=== PATIENT | female | born 1975 | race Caucasian/White ===

== ENCOUNTER → 2016-09-13 | Outpatient (CLI) | payer BC ==
--- NOTE | 2016-09-16 13:17 | Diagnostic Imaging Report ---
EXAMINATION: Bilateral screening mammogram 2D views with tomosynthesis. The current study was also evaluated with a Computer Aided Detection (CAD) system. INDICATION: Screening. PERSONAL HISTORY: No current complaints stated on the questionnaire. COMPARISON: None. This is a baseline study. FINDINGS: There are scattered fibroglandular densities seen bilaterally. An intramammary lymph node in the axillary tail of the right breast is seen. No mass, architectural distortion, or suspicious cluster of calcifications. IMPRESSION: No mammographic evidence of malignancy. Annual screening mammograms are recommended. ACR BI-RADS Category 2: Benign findings. Result letter will be mailed to the patient. Note: At least 10% of breast cancer is not imaged by mammography. Dictated by: Dictated on workstation # [id number]
== END ==
LOC: RAD 12:02
PROVIDERS: ATTEND Family Medicine
DX: Z12.31 Encounter for screening mammogram for malignant neoplasm of breast (principal)
CPT/HCPCS: 77067

== ENCOUNTER → 2017-02-06 | Outpatient (CLI) | payer BC | LOC: CARD 09:19 | PROVIDERS: ATTEND Nurse Practitioner Family | DX: R00.2 Palpitations (principal) | CPT/HCPCS: 93005 ==

== ENCOUNTER → 2018-03-11 | Outpatient (CLI) | payer BC ==
--- NOTE | 2018-03-11 15:17 | Diagnostic Imaging Report ---
INDICATION: Cough and chest tenderness. PA and lateral views of the chest are obtained. COMPARISON: No previous study is available for comparison at this time. FINDINGS: Heart size and pulmonary vasculature are within normal limits, and the lungs are clear, bilaterally. IMPRESSION: Unremarkable chest. Dictated by: Dictated on workstation # [id number]
== END ==
LOC: RAD 14:39
PROVIDERS: ATTEND Family Medicine
DX: R05 Cough (principal); R07.89 Other chest pain
CPT/HCPCS: 71046

== ENCOUNTER → 2018-09-10 | Outpatient (CLI) | payer BC ==
--- NOTE | 2018-09-10 09:55 | Diagnostic Imaging Report ---
PROCEDURE: US Gallbladder. TECHNIQUE: Multiple real-time grayscale images were obtained over the right upper quadrant in various projections. INDICATION: Right upper quadrant pain. FINDINGS: The liver is normal in size without focal lesions. No biliary duct dilatation, common bile duct measures less than 5 mm. There is no cholelithiasis, gallbladder wall thickening or pericholecystic fluid. There is some gallbladder sludge. Visualized portions of the pancreas are unremarkable. Right kidney is normal. No ascites. IMPRESSION: Gallbladder sludge otherwise unremarkable right upper quadrant ultrasound. Dictated by: Dictated on workstation # [id number]
== END ==
LOC: RAD 09-08 14:25
PROVIDERS: ATTEND Family Medicine
DX: K82.8 Other specified diseases of gallbladder (principal); R14.0 Abdominal distension (gaseous)
CPT/HCPCS: 76705

== ENCOUNTER 2018-10-01 05:50 | Outpatient (CLI) | payer BC ==
[~2018-10-01] VITALS: Ht 185.4 cm; Wt 120.2 kg
[2018-10-01] MEDS ORDERED: PANT40TA3 PO (16:39)
== END 2018-10-01 16:46 | disposition home or self-care (01) ==
LOC: PREOP 05:50
PROVIDERS: ATTEND Surgery
DX: Z01.818 Encounter for other preprocedural examination (principal)

== ENCOUNTER 2018-10-08 06:59 | Day surgery (SDC) | payer BC ==
[2018-10-08] VITALS (12 sets, daily range): BP systolic 12–120; BP diastolic 58–72
[~2018-10-08] VITALS: Ht 185.4 cm; Wt 122.1 kg
[~2018-10-08 06:59] MED LIST: PANT40TA3 PO
[2018-10-08] MEDS ORDERED: ceFAZolin 2 GM/50 ML NS 50 ML IV ONE (07:15)
[2018-10-08] MEDS ORDERED: proPOfol 200 MG/20 ML (DIPRIVAN) VIAL IV ONE (07:27)
[2018-10-08] MEDS ORDERED: MIDAZOLAM 2 MG/2 ML (VERSED) VIAL ONE (07:27)
[2018-10-08] MEDS ORDERED: DEXAMETHASONE 10 MG/ML (DECADRON) 1 ML VIAL ONE (07:27)
[2018-10-08] MEDS ORDERED: LIDOCAINE PF 2% 5 ML (XYLOCAINE) VIAL ONE (07:27)
[2018-10-08] MEDS ORDERED: ONDANSETRON 4 MG/2 ML (SDV) Z0FRAN ONE ×2 (07:27→11:36)
[2018-10-08] MEDS ORDERED: SEVOFLURANE (ULTANE) 15 ML INHAL SOLN ONE ×4 (07:27→10:11)
[2018-10-08] MEDS ORDERED: fentaNYL INJECTION 100 MCG/2 ML AMP ONE ×2 (07:27→10:05)
[2018-10-08] MEDS ORDERED: BUP/EPI 0.5% 1:200,000 (MARCAINE) 10ML VIAL IJ ONE (07:29)
[2018-10-08] MEDS: LACTATED RINGERS 1,000 ML IV PRN ×2 (08:05→10:24)
[2018-10-08] MEDS ORDERED: FAMOTIDINE 20MG/2ML IV (PEPCID) ONE (08:25)
--- NOTE | 2018-10-08 08:27 | Progress Note-Pre Operative ---
Pre-Operative Progress Note H&P Reviewed The H&P was reviewed, patient examined and no changes noted. Date Seen by Provider: Oct 08, 2018 Time Seen by Provider: 08:25 Date H&P Reviewed: Oct 08, 2018 Time H&P Reviewed: 08:20 Pre-Operative Diagnosis: Chronic calculous cholecystitis YANDY RAMAN APRN Oct 08, 2018 08:27
[2018-10-08] MEDS ORDERED: HYDR-3816 PO (08:29)
[2018-10-08] MEDS ORDERED: ONDANSETRON 4 MG/2 ML (SDV) Z0FRAN IVP PRN ×2 (08:30→10:45)
[2018-10-08] MEDS ORDERED: ACETAMINOPHEN 325 MG TABLET PO PRN (08:30)
[2018-10-08] MEDS ORDERED: HYDROcodone/APAP 5 MG/325 MG (LORTAB) TAB PO ONE (08:30)
[2018-10-08] MEDS ORDERED: morphine INJ 10 MG/ML 1ML (SYR OR VIAL) IVP PRN (08:30)
--- NOTE | 2018-10-08 08:30 | Discharge Inst-Surgical ---
D/C Lap Instructions-KIDO Reconcile Patient Problems Problems Reviewed?: Yes New, Converted, or Re-Newed RX: RX on Chart Follow Up Appt in 2 weeks Activity as tolerated No driving for 24 hours No driving while on pain medications Incentive Spirometry use every 2 hours while awake Regular Diet Symptoms to Report: Fever over 101 degree F, Nausea/Vomiting Infection Signs and Symptoms to report: Increased redness, Foul odor of wound, Increased drainage Bathing instructions: May shower Operative Area Clean/Dry; Keep incision clean/dry If any problems/questions: Contact your physician or go to Emergency Room YANDY RAMAN APRN Oct 08, 2018 08:30
[2018-10-08] MEDS ORDERED: FAMOTIDINE 20MG/2ML IV (PEPCID) IV ONE (08:45)
[2018-10-08 09:00] LABS: BASOPHILS % (AUTO) 0 % (0-10); EOSINOPHILS # (AUTO) 0.1 10^3/uL (0.0-0.3); EOSINOPHILS % (AUTO) 1 % (0-10); HEMATOCRIT 41 % (35-52); HEMOGLOBIN 13.3 G/DL (11.5-16.0); LYMPHOCYTES # (AUTO) 1.9 X 10^3 (1.0-4.0); LYMPHOCYTES % (AUTO) 30 % (12-44); MEAN CORPUSCULAR HEMOGLOBIN 29 PG (25-34); MEAN CORPUSCULAR HGB CONC 33 G/DL (32-36); MEAN CORPUSCULAR VOLUME 87 FL (80-99); MEAN PLATELET VOLUME 11.5 FL (7.4-10.4); MONOCYTES # (AUTO) 0.6 X 10^3 (0.0-1.0); MONOCYTES % (AUTO) 9 % (0-12); NEUTROPHILS # (AUTO) 3.7 X 10^3 (1.8-7.8); NEUTROPHILS % (AUTO) 59 % (42-75); PLATELET COUNT 191 10^3/uL (130-400); RED CELL DISTRIBUTION WIDTH 13.2 % (10.0-14.5); WHITE BLOOD COUNT 6.3 10^3/uL (4.3-11.0)
[2018-10-08] MEDS ORDERED: ROCURONIUM 10 MG/ML 5 ML SYRINGE IV ONE (10:12)
[2018-10-08] MEDS ORDERED: GLYCOPYRROLATE 0.2 MG/ML (ROBINUL) 2 ML VIAL ONE (10:16)
[2018-10-08] MEDS ORDERED: NEOSTIGMINE 3 MG/3 ML VIAL ONE (10:16)
[2018-10-08] MEDS ORDERED: KETOROLAC 30 MG/ML VIAL ONE (10:24)
--- NOTE | 2018-10-08 10:40 | Progress Note-Post Operative ---
Post-Operative Progess Note Surgeon (s)/Shop Laborer (s) Surgeon JOHNSON RICHARDS MD Shop Laborer: chago baum EARTH MOVER Pre-Operative Diagnosis Chronic calculous cholecystitis Post-Operative Diagnosis same Procedure & Operative Findings Date of Procedure 10/08/18 Procedure Performed/Findings laparoscopic cholecystectomy Anesthesia Type get Estimated Blood Loss Estimated blood loss (mL): minimal Specimens/Packing Specimens Removed gallbladder JOHNSON RICHARDS MD Oct 08, 2018 10:40
[2018-10-08] MEDS ORDERED: HYDROmorphone 2 MG/ML VIAL (DILAUDID) IV ONE (10:45)
[2018-10-08] MEDS ORDERED: HYDROmorphone 2 MG/ML VIAL (DILAUDID) ONE (10:54)
--- NOTE | 2018-10-08 11:03 | Anesthesia-General Post-Op ---
General Patient Condition Mental Status/LOC: Same as Preop Cardiovascular: Satisfactory Nausea/Vomiting: Absent Respiratory: Satisfactory Pain: Controlled Complications: Absent Post Op Complications Complications None Follow Up Care/Instructions Patient Instructions None needed. Anesthesia/Patient Condition Patient Condition Patient is doing well, no complaints, stable vital signs, no apparent adverse anesthesia problems. No complications reported per nursing. STEFAN REDDY CRNA Oct 08, 2018 11:03
--- NOTE | 2018-10-08 12:28 | NUR ---
PER YANDY RAMAN APRN, THIS NURSE CALLED IN TO [facility] : ZOFRAN (ORAL DISSOLVE) 4MG PO Q6HRS PRN NAUSEA #30 WITH 2 REFILLS.
[2018-10-08] MEDS ORDERED: diphenhydrAMINE 50 MG/ML INJ (BENADRYL) ONE (12:52)
[2018-10-08] MEDS ORDERED: diphenhydrAMINE 50 MG/ML INJ (BENADRYL) IVP ONE (13:00)
--- NOTE | 2018-10-08 14:45 | OPERATIVE REPORT ---
DATE OF SERVICE: 10/08/2018 ATTENDING PRIMARY CARE PHYSICIAN: Philly Dalton DO PREOPERATIVE DIAGNOSIS: Chronic calculous cholecystitis. POSTOPERATIVE DIAGNOSIS: Chronic calculous cholecystitis. PROCEDURE: Laparoscopic cholecystectomy. SURGEON: Johnson Richards MD MILL BEAM FITTER: Alin Leigh APRN ANESTHESIA: General endotracheal. ESTIMATED BLOOD LOSS: Minimal. FINDINGS: Mildly dilated gallbladder, no gallbladder wall thickening, thick sludge as well as small stones. DISPOSITION: The patient tolerated the procedure well. INDICATIONS: The patient is a 43-year-old female with abdominal bloating, increased belching as well as an episode of nausea and vomiting. Her symptoms initially started 6 years ago; however, had become more prevalent as well as more severe. She does state that with the abdominal bloating, this is followed by radiation of pain towards the back. She had an ultrasound performed, which did show sludge within the gallbladder. She states she does not have any classic symptoms of reflux; however, with this abdominal bloating after meals, she will have some epigastric burning. DESCRIPTION OF PROCEDURE: The patient was brought to the operating room, laid supine on the table. After adequate IV pain and sedative medications and general endotracheal intubation, the abdomen was prepped and draped in standard surgical fashion. A 0.5% Marcaine with epinephrine was then used to anesthetize the overlying skin in the left upper abdominal quadrant and a small transverse skin incision was made using a 15 blade. An 0 silk suture was applied to the medial aspect incision for retraction and a Veress needle was inserted with a low opening pressure of 0 mmHg and the abdomen was then insufflated to 15 mmHg pressure. The Veress needle was removed and a 5 mm Xcel trocar was placed followed by a 5 mm 45-degree angle laparoscope visualizing the peritoneal cavity. A 4-quadrant abdominal exploration was performed. Mild gallbladder wall distention identified. There was no gallbladder wall inflammation. The liver, stomach, omentum appeared normal. Under direct visualization, we then proceeded to place a supraumbilical 10 mm port after the skin and peritoneal lining were anesthetized using 0.5% Marcaine with epinephrine and a transverse skin incision was made using a 15 blade. In a similar manner, a right upper abdominal quadrant 5 mm port was placed. The patient was then placed in reverse Trendelenburg position as well as plane right side up, left side down. The fundus of the gallbladder was then retracted anteriorly and superiorly. The hepatoduodenal ligament was then opened using blunt dissection as well as cautery on a hook instrument. The entire critical view of safety was identified including the triangle of Calot as well as the cystic duct and artery as the only two structures going into the gallbladder as well as the cystic plate behind the proximal gallbladder. A timeout was then taken and the cystic duct and artery were then clipped proximally and distally and cut with EndoShears. The gallbladder was then dissected off the liver bed using cautery on hook instrument with visualization of good hemostasis as well as no leaking ducts of Luschka. The gallbladder was removed through the 10 mm port site using an EndoCatch bag. The gallbladder was examined on the back table with a thick sludge as well as small stones identified. The fascia and peritoneum to the 10 mm port site were then closed under direct visualization using a Chava-Latosha device and 0 Vicryl suture. The abdomen was desufflated and the remaining ports were removed. All skin incisions were closed using 4-0 Monocryl running subcuticular sutures. Wounds were then cleaned and covered with Dermabond. The patient tolerated the procedure well. We will start IV and oral pain medication as well as a clear liquid diet. Once she is tolerating clears, has good pain control with oral pain medications, ambulating well, we will discharge her home. She will be instructed to do no heavy lifting or exertion for the next two weeks. Job ID: [id number] DocumentID: [id number] Dictated Date: 10/08/2018 10:25:29 Road Repairer Date: 10/08/2018 14:45:07 Dictated By: JOHNSON RICHARDS MD
== END 2018-10-08 13:28 | disposition home or self-care (01) ==
LOC: SDC 06:59
PROVIDERS: ATTEND Surgery
DX: K81.1 Chronic cholecystitis (principal); K21.9 Gastro-esophageal reflux disease without esophagitis; E66.9 Obesity, unspecified; Z68.35 Body mass index [BMI] 35.0-35.9, adult; Z79.891 Long term (current) use of opiate analgesic; Z80.0 Family history of malignant neoplasm of digestive organs; Z82.49 Family history of ischemic heart disease and other diseases of the circulatory system
CPT/HCPCS: 36415; 84703; 85025; 87081; 88304

== ENCOUNTER → 2018-12-07 | Outpatient (CLI) | payer BC ==
[~2018-12-07] MED LIST changes: +HYDR-3816 PO
== END | disposition home or self-care (01) ==
LOC: PREOP 06:35
PROVIDERS: ATTEND Surgery
DX: Z01.818 Encounter for other preprocedural examination (principal)

== ENCOUNTER 2019-05-12 05:32 | Outpatient (CLI) | payer BC ==
[~2019-05-12] VITALS: Ht 185.5 cm; Wt 118.2 kg
[~2019-05-12 05:32] MED LIST changes: +HYDR-34 PO; -HYDR-3816 PO
[2019-05-12] MEDS ORDERED: OMEP40CA27 PO (12:10)
== END 2019-05-12 12:17 | disposition home or self-care (01) ==
LOC: PREOP 05:32
PROVIDERS: ATTEND Surgery
DX: Z01.818 Encounter for other preprocedural examination (principal)

== ENCOUNTER 2019-11-04 10:57 | Emergency (ER) | payer BC ==
[~2019-11-04] VITALS: Ht 185.4 cm; Wt 115.6 kg
[~2019-11-04 10:57] MED LIST changes: +OMEP40CA27 PO; -PANT40TA3 PO; +PANT40TA52 PO
--- NOTE | 2019-11-04 11:22 | ED Cardiac General ---
History of Present Illness General Chief Complaint: Cardiac/General Problems Stated Complaint: HIGH BP;HIGH HR;COUGH Nursing Triage Note: PT IN AMBULATORY TO ROOM, C/O CHEST DISCOMFORT FOR PAS T FEW DAYS, ELEVATED BP AND FEELS LIKE PALPITATIONS, REPORTS PAIN A TICKLE. DENIES SOB, BUT HAVING SOME COUGHING. FEELS SOB WITH ACTIVITY. BP TAKEN BY SCHOOL NURSE, 140/86 BEEHIVE KILN CHARCOAL BURNER, HR 135-146. Source: patient Exam Limitations: no limitations History of Present Illness Date Seen by Provider: Nov 04, 2019 Time Seen by Provider: 11:20 Initial Comments To ER by private vehicle with reports of a high heart rate and high blood pressure intermittently. She will feel palpitations intermittently for about a year. They seemed to improve with the use of [id number] and prescription antacids, the initial thought was that this might be related to acid reflux. However today the school nurse checked her heart rate and found it to be 140s. Her brother does have atrial fibrillation. Timing/Duration: changing over time Severity: moderate Activities at Onset: none Prior CP/Workup: no prior chest pain NTG SL BEEHIVE KILN CHARCOAL BURNER: No ASA po BEEHIVE KILN CHARCOAL BURNER: No Allergies and Home Medications Allergies Coded Allergies: No Known Drug Allergies (Unverified , 10/01/18) Home Medications Apixaban 5 Mg Tablet, 5 MG PO BID Prescribed by: MALIA CRUZ on 11/04/19 1234 Diltiazem HCl 120 Mg Cap.er.24h, 1-2 TAB PO DAILY Prescribed by: MALIA CRUZ on 11/04/19 1234 Omeprazole 40 Mg Capsule.dr, 40 MG PO BID, (Reported) Patient Home Medication List Home Medication List Reviewed: Yes Review of Systems Review of Systems Constitutional: see HPI; No chills, No fever EENTM: No Symptoms Reported Respiratory: Cough (she coughs only when she has the sensation of palpitations as she feels like it might terminate the palpitations. She is otherwise not febrile short of breath or exposed to ill contacts that she knows of.); Denies Orthopnea, Denies Shortness of Air Cardiovascular: Denies See HPI, Denies Chest Pain; Irregular Heart Rate, Palpitations Gastrointestinal: See HPI Genitourinary: No Symptoms Reported Musculoskeletal: no symptoms reported Skin: no symptoms reported Psychiatric/Neurological: No Symptoms Reported Endocrine: No Symptoms Reported Past Jowdfad-Lmavvh-Uuxuhu Hx Patient Social History Recent Foreign Travel: No Contact w/Someone Who Travel: No Recent Infectious Disease Expo: No Recent Hopitalizations: No Immunizations Up To Date Tetanus Booster (TDap): Unknown PED Vaccines UTD: No Seasonal Allergies Seasonal Allergies: Yes Past Medical History Surgeries: Yes Section Respiratory: No Cardiac: No Neurological: No Last Menstrual Period: Oct 13, 2019 Genitourinary: No Gastrointestinal: Yes Gastroesophageal Reflux, Gall Bladder Disease Musculoskeletal: No Endocrine: No HEENT: No Cancer: No Psychosocial: No Integumentary: No Blood Disorders: No Physical Exam Vital Signs Vital Signs - First Documented 11/04/19 11/04/19 11:10 11:57 Pulse 90 Resp 18 B/P (MAP) 126/71 (89) Pulse Ox 98 O2 Delivery Room Air Capillary Refill : Less Than 3 Seconds Height, Weight, BMI Height: 6'1.00" Weight: 269lbs. 2.0oz. 122.823939ax; 33.00 BMI Method: General Appearance: No Apparent Distress, WD/WN, Other (alert and oriented. Heart rate varies from normal sinus rhythm rate in the 80s to paroxysmal atrial fibrillation with a rate of 130 to 140. These episodes are brief lasting less than a minute and self terminate.) Respiratory: No Accessory Muscle Use, No Respiratory Distress Cardiovascular: Normal Peripheral Pulses, Irregularly Irregular, Tachycardia Gastrointestinal: No Pulsatile Mass, Non Tender, Soft Extremity: Normal Capillary Refill, Normal Inspection Neurologic/Psychiatric: Alert, Oriented x3 Skin: Normal Color, Warm/Dry Progress/Results/Core Measures Results/Orders Lab Results Laboratory Tests Test 11/04/19 11:22 Range/Units White Blood Count 8.2 4.3-11.0 10^3/uL Red Blood Count 4.61 4.35-5.85 10^6/uL Hemoglobin 13.2 11.5-16.0 G/DL Hematocrit 40 35-52 % Mean Corpuscular Volume 86 80-99 FL Mean Corpuscular Hemoglobin 29 25-34 PG Mean Corpuscular Hemoglobin Concent 33 32-36 G/DL Red Cell Distribution Width 13.1 10.0-14.5 % Platelet Count 202 130-400 10^3/uL Mean Platelet Volume 12.4 H 7.4-10.4 FL Neutrophils (%) (Auto) 64 42-75 % Lymphocytes (%) (Auto) 27 12-44 % Monocytes (%) (Auto) 9 0-12 % Eosinophils (%) (Auto) 1 0-10 % Basophils (%) (Auto) 0 0-10 % Neutrophils # (Auto) 5.2 1.8-7.8 X 10^3 Lymphocytes # (Auto) 2.2 1.0-4.0 X 10^3 Monocytes # (Auto) 0.7 0.0-1.0 X 10^3 Eosinophils # (Auto) 0.1 0.0-0.3 10^3/uL Basophils # (Auto) 0.0 0.0-0.1 10^3/uL Prothrombin Time 13.8 12.2-14.7 SEC INR Comment 1.0 0.8-1.4 Activated Partial Thromboplast Time 30 24-35 SEC D-Dimer 0.27 0.00-0.49 UG/ML Sodium Level 139 135-145 MMOL/L Potassium Level 4.0 3.6-5.0 MMOL/L Chloride Level 108 H 98-107 MMOL/L Carbon Dioxide Level 22 21-32 MMOL/L Anion Gap 9 5-14 MMOL/L Blood Urea Nitrogen 16 7-18 MG/DL Creatinine 1.02 0.60-1.30 MG/DL Estimat Glomerular Filtration Rate 58 BUN/Creatinine Ratio 16 Glucose Level 87 70-105 MG/DL Calcium Level 8.9 8.5-10.1 MG/DL Corrected Calcium 8.9 8.5-10.1 MG/DL Magnesium Level 2.0 1.6-2.4 MG/DL Total Bilirubin 1.1 H 0.1-1.0 MG/DL Aspartate Amino Transf (AST/SGOT) 24 5-34 U/L Alanine Aminotransferase (ALT/SGPT) 15 0-55 U/L Alkaline Phosphatase 68 40-136 U/L Myoglobin 43.7 10.0-92.0 NG/ML Troponin I < 0.028 <0.028 NG/ML Total Protein 7.3 6.4-8.2 GM/DL Albumin 4.0 3.2-4.5 GM/DL Thyroid Stimulating Hormone (TSH) 1.19 0.35-4.94 UIU/ML Free Thyroxine 0.84 0.70-1.48 NG/DL Serum Test, Qualitative NEGATIVE NEGATIVE My Orders Orders - CRUZ,PETER J PASSENGER RATE CLERK Cbc With Automated Diff (11/04/19 11:18) Magnesium (11/04/19 11:18) Chest 1 View, Ap/Pa Only (11/04/19 11:18) Ekg Tracing (11/04/19 11:18) Comprehensive Metabolic Panel (11/04/19 11:18) Myoglobin Serum (11/04/19 11:18) Protime With Inr (11/04/19 11:18) Partial Thromboplastin Time (11/04/19 11:18) O2 (11/04/19 11:18) Monitor-Rhythm Ecg Trace Only (11/04/19 11:18) Lipid Panel (11/05/19 06:00) Ed Iv/Invasive Line Start (11/04/19 11:18) Fibrin Degradation Products (11/04/19 11:18) Troponin I (11/04/19 11:18) Aspirin Chewable Tablet (Baby Aspirin Ch (11/04/19 11:30) Metoprolol Tartrate Injection (Lopressor (11/04/19 11:30) Thyroid Stimulating Hormone (11/04/19 11:19) Free T4 (Free Thyroxine) (11/04/19 11:19) Hcg,Qualitative Serum (11/04/19 11:19) Apixaban Tablet (Eliquis Tablet) (11/04/19 11:45) Diltiazem Cd 24 Hr Capsule (Cardizem Cd (11/04/19 12:45) Medications Given in ED Current Medications Medications Dose Ordered Sig/Noris Route Start Time Stop Time Status Last Admin Dose Admin Apixaban 5 mg ONCE ONCE PO 11/04/19 11:45 11/04/19 11:46 DC 11/04/19 11:46 5 MG Aspirin 324 mg ONCE ONCE PO 11/04/19 11:30 11/04/19 11:31 DC 11/04/19 11:36 324 MG Metoprolol Tartrate 5 mg ONCE ONCE IV 11/04/19 11:30 11/04/19 11:31 DC 11/04/19 11:43 5 MG Vital Signs/I&O 11/04/19 11/04/19 11:10 11:57 Pulse 90 81 Resp 18 16 B/P (MAP) 126/71 (89) 103/53 (70) Pulse Ox 98 O2 Delivery Room Air Room Air Blood Pressure Mean: 89 Diagnostic Imaging Diagonstic Imaging: Xray Comments NAME: [facility] REC#: [id number] PT STATUS: REG ER : 1975 PHYSICIAN: MALIA CRUZ APRN ADMIT DATE: 11/04/19/ER Draft Date of Exam:11/04/19 CHEST 1 VIEW, AP/PA ONLY INDICATION: Chest pain. TIME OF EXAM: 11:55 AM Correlation is made with prior chest from 03/11/2018. FINDINGS: The heart size is normal. The pulmonary vascularity is unremarkable. The lungs are CLEAR. No infiltrate, effusion or pneumothorax is detected. IMPRESSION: No acute cardiopulmonary process is detected. Dictated on workstation # [id number] Dict: 11/04/19 1201 Trans: 11/04/19 1203 [id number] Interpreted by: IGNACIA HARE MD Electronically signed by: Departure Communication (Admissions) 1231-heart rate 74 atrial fibrillation blood pressure 103/83. Spoke with Dr. Hutchins, labs are all unremarkable. He would recommend Cardizem CD 120 mg daily, she can take up to 2 tablets daily if she has persistent tachycardia at home. He would use Eliquis 5 mg twice a day and he'll see the patient Friday in the clinic, no benefit to hospitalization at this point given her normal labs and hemodynamic status. Impression Primary Impression: New onset atrial flutter Additional Impression: Paroxysmal atrial flutter Disposition: ADMITTED INPATIENT Condition: Stable Departure-Patient Inst. Decision time for Depature: 12:32 Referrals: FREDA STEELE MD, JACQUELINE S DO (PCP/Family) Primary Care Physician Patient Instructions: Atrial Fibrillation Add. Discharge Instructions: 1. It is imperative that you take the anticoagulation Eliquis twice a day as directed to reduce risk of stroke. Take the Cardizem rate controlling medication 120 mg daily. If you have persistent palpitations/tachycardia despite this, you can increase it to [address] Steele's office today to make an appointment to be seen on Friday. Given your normal labs, you are okay to be sent home and proceed with outpatient workup rather than staying in the hospital. There is nothing to be gained by hospitalization at this point. All discharge instructions reviewed with patient and/or family. Voiced un derstanding. Scripts Apixaban (Eliquis) 5 Mg Tablet 5 MG PO BID, #20 TAB Prov: MALIA CRUZ APRN 11/04/19 Diltiazem HCl (Cardizem Cd) 120 Mg Cap.er.24h 1-2 TAB PO DAILY, #30 CAP Prov: MALIA CRUZ APRN 11/04/19 Copy Copies To 1: FREDA STEELE MD; TAMELA LAURA PETER J APRN Nov 04, 2019 11:22
[2019-11-04] MEDS ORDERED: meTOprolol 5 MG/5 ML (LOPRESSOR) VIAL IV ONE (11:30)
[2019-11-04] MEDS ORDERED: ASPIRIN 81 MG CHEW (CHILDREN'S ASA) PO ONE (11:30)
[2019-11-04 11:45] LABS: BASOPHILS % (AUTO) 0 % (0-10); EOSINOPHILS # (AUTO) 0.1 10^3/uL (0.0-0.3); EOSINOPHILS % (AUTO) 1 % (0-10); HEMATOCRIT 40 % (35-52); HEMOGLOBIN 13.2 G/DL (11.5-16.0); LYMPHOCYTES # (AUTO) 2.2 X 10^3 (1.0-4.0); LYMPHOCYTES % (AUTO) 27 % (12-44); MEAN CORPUSCULAR HEMOGLOBIN 29 PG (25-34); MEAN CORPUSCULAR HGB CONC 33 G/DL (32-36); MEAN CORPUSCULAR VOLUME 86 FL (80-99); MEAN PLATELET VOLUME 12.4 FL (7.4-10.4); MONOCYTES # (AUTO) 0.7 X 10^3 (0.0-1.0); MONOCYTES % (AUTO) 9 % (0-12); NEUTROPHILS # (AUTO) 5.2 X 10^3 (1.8-7.8); NEUTROPHILS % (AUTO) 64 % (42-75); PLATELET COUNT 202 10^3/uL (130-400); WHITE BLOOD COUNT 8.2 10^3/uL (4.3-11.0)
[2019-11-04] MEDS ORDERED: APIXABAN 5 MG (ELIQUIS) TABLET PO ONE (11:45)
[2019-11-04 11:55] LABS: PROTHROMBIN TIME PATIENT 13.8 SEC (12.2-14.7)
[2019-11-04 11:57] VITALS: BP 103/53
--- NOTE | 2019-11-04 11:59 | NUR ---
PT AMBULATORY TO RR WITHOUT DISTRESS NOTED.
[2019-11-04 12:04] LABS: BILIRUBIN,TOTAL 1.1 MG/DL (0.1-1.0); CALCIUM 8.9 MG/DL (8.5-10.1); CREATININE SERUM 1.02 MG/DL (0.60-1.30); TOTAL PROTEIN 7.3 GM/DL (6.4-8.2)
--- NOTE | 2019-11-04 12:04 | Diagnostic Imaging Report ---
INDICATION: Chest pain. TIME OF EXAM: 11:55 AM Correlation is made with prior chest from 03/11/2018. FINDINGS: The heart size is normal. The pulmonary vascularity is unremarkable. The lungs are CLEAR. No infiltrate, effusion or pneumothorax is detected. IMPRESSION: No acute cardiopulmonary process is detected. Dictated by: Dictated on workstation # [id number]
[2019-11-04 12:26] LABS: FREE T4 (FREE THYROXINE) 0.84 NG/DL (0.70-1.48)
--- NOTE | 2019-11-04 12:28 | NUR ---
PT TALKING ON PHONE WITH . REPORTS FEELING FINE.
[2019-11-04] MEDS ORDERED: DILT120C82 PO (12:34)
[2019-11-04] MEDS ORDERED: APIX5TAB PO (12:34)
[2019-11-04] MEDS ORDERED: dilTIAZem120 MG (CARDIZEM CD) CAP PO SCH (12:45)
[2019-11-04 12:53] VITALS: BP 112/74
[2019-11-04 13:06] VITALS: BP 112/74
== END 2019-11-04 13:01 | disposition other institution (70) ==
LOC: EDUNIT# 10:57 → ER 10:58
DX: I48.92 Unspecified atrial flutter (principal); I48.0 Paroxysmal atrial fibrillation; K21.9 Gastro-esophageal reflux disease without esophagitis; Z79.01 Long term (current) use of anticoagulants
CPT/HCPCS: 36415; 71045; 80053; 83735; 83874; 84439; 84443; 84484; 84703; 85025; 85379; 85610; 85730; 93005; 93041

== ENCOUNTER 2019-11-15 05:29 | Outpatient (RCR) | payer BC ==
[~2019-11-15] VITALS: Ht 185.5 cm; Wt 119.1 kg
[~2019-11-15 05:29] MED LIST changes: +APIX5TAB PO; +DILT120C82 PO
== END 2019-11-15 09:27 | disposition home or self-care (01) ==
LOC: PREOP 05:29
PROVIDERS: ATTEND Surgery
DX: Z01.812 Encounter for preprocedural laboratory examination (principal); Z20.828 Contact with and (suspected) exposure to other viral communicable diseases
CPT/HCPCS: 87635

== ENCOUNTER 2019-11-17 09:01 | Day surgery (SDC) | payer BC ==
[~2019-11-17] VITALS: Ht 185.5 cm; Wt 119.1 kg
[2019-11-17] VITALS (9 sets, daily range): BP systolic 107–125; BP diastolic 55–72
[2019-11-17] MEDS ORDERED: NS IV 500 ML 500 ML ONE (09:12)
[2019-11-17] MEDS ORDERED: NS IV 500 ML 500 ML IV PRN (09:13)
[2019-11-17] MEDS ORDERED: fentaNYL INJECTION 100 MCG/2 ML AMP IVP ONE (09:15)
[2019-11-17] MEDS ORDERED: HURRICAINE EXT TUBE (BENZOCAINE) XX PRN (09:15)
[2019-11-17] MEDS ORDERED: MIDAZOLAM 5 MG/5 ML (VERSED) VIAL IV ONE (09:15)
[2019-11-17] MEDS ORDERED: LIDOCAINE JELLY 2% 6 ML SYRINGE MM PRN (09:15)
[2019-11-17] MEDS ORDERED: CETI10TA49 PO (09:22)
[2019-11-17] MEDS ORDERED: OMEP20TA33 PO (09:22)
[2019-11-17] MEDS ORDERED: MIDAZOLAM 5 MG/5 ML (VERSED) VIAL ONE (10:19)
[2019-11-17] MEDS ORDERED: fentaNYL INJECTION 100 MCG/2 ML AMP ONE (10:19)
[2019-11-17] MEDS ORDERED: LIDOCAINE JELLY 2% 6 ML SYRINGE ONE (10:19)
--- NOTE | 2019-11-17 10:29 | Progress Note-Pre Operative ---
Pre-Operative Progress Note H&P Reviewed The H&P was reviewed, patient examined and no changes noted. Date Seen by Provider: Nov 17, 2019 Time Seen by Provider: : Date H&P Reviewed: Nov 17, 2019 Time H&P Reviewed: : Pre-Operative Diagnosis: JOHNSON ORLANDO MD Nov 17, 2019 10:29
--- NOTE | 2019-11-17 10:29 | Conscious Sedation/ASA ---
Conscious Sedation Pre-Proced Time 09:30 ASA Score 2 For ASA 3 and 4: Consider anesthesia and medical clearance. Also, for patients with a history of failed moderate sedation consider anesthesia. Airway Lungs Heart ASA score ASA 1: a normal healthy patient ASA 2: a patient with a mild systemic disease (mid diabetes, controlled hypertension, obesity ASA 3: a patient with a severe systemic disease that limits activity (angina, COPD, prior Myocardial infarction) ASA 4: a patient with an incapacitating disease that is a constant threat to life (CHF, renal failure) ASA 5: a moribund patient not expected to survive 24 hrs. (ruptured aneurysm) ASA 6: a declared brain- patient whose organs are being harvested. For emergent operations, add the letter E after the classification Mallampati Classification Grade 2 Sedation Plan Analgesia, Amnesia, Plan communicated to team members, Discussed options with patient/fam, Discussed risks with patient/fam The patient is an appropriate candidate to undergo the planned procedure, sedation, and anesthesia. The patient immediately re-assessed prior to indication. JOHNSON RICHARDS MD Nov 17, 2019 10:29
[2019-11-17] MEDS ORDERED: HYDROcodone/APAP 5 MG/325 MG (LORTAB) TAB PO PRN (10:30)
[2019-11-17] MEDS ORDERED: ONDANSETRON 4 MG/2 ML (SDV) Z0FRAN IVP PRN (10:30)
[2019-11-17] MEDS ORDERED: PANT40TA2 PO (10:30)
[2019-11-17] MEDS ORDERED: morphine INJ 10 MG/ML 1ML (SYR OR VIAL) IVP PRN ×2 (10:30)
[2019-11-17] MEDS ORDERED: ACETAMINOPHEN 325 MG TABLET PO PRN (10:30)
--- NOTE | 2019-11-17 10:30 | Discharge Inst-Surgical ---
D/C Lap Instructions-MAURICE New, Converted, or Re-Newed RX: RX on Chart Follow Up Activity as tolerated High Fiber Diet 25g or more per day Avoid Alcohol, Caffeine, Spicy [place] and Acid foods. Drink 64 fluid oz or more of fluids per day. Symptoms to Report: Fever over 101 degree F, Nausea/Vomiting If any problems/questions: Contact your physician or go to Emergency Room JOHNSON RICHARDS MD Nov 17, 2019 10:30
--- NOTE | 2019-11-17 11:13 | Progress Note-Post Operative ---
Post-Operative Progess Note Surgeon (s)/Bleach Chlorinator (s) Surgeon JOHNSON RICHARDS MD Bleach Chlorinator: none Pre-Operative Diagnosis GERD Post-Operative Diagnosis reflux esophagitis(stage 2), small-moderate HH(2.5cm), mild-mod gastritis. Procedure & Operative Findings Date of Procedure 11/17/19 Procedure Performed/Findings EGD with bx. Anesthesia Type cs Estimated Blood Loss Estimated blood loss (mL): minimal Specimens/Packing Specimens Removed ge jxn, antrum JOHNSON RICHARDS MD Nov 17, 2019 11:13
--- NOTE | 2019-11-17 13:03 | OPERATIVE REPORT ---
DATE OF SERVICE: 11/17/2019 ATTENDING PRIMARY CARE PHYSICIAN: Philly Dalton DO. PREOPERATIVE DIAGNOSIS: Gastroesophageal reflux disease. POSTOPERATIVE DIAGNOSES: Reflux esophagitis stage II, small to moderate size hiatal hernia 2.5 cm in size, mild to moderate gastritis and no distal obstructions. PROCEDURE PERFORMED: EGD with biopsy. SURGEON: Johnson Richards MD. ANESTHESIA: Conscious sedation. ESTIMATED BLOOD LOSS: Minimal. FINDINGS: Same as postoperative diagnoses. DISPOSITION: The patient tolerated the procedure well. INDICATIONS FOR PROCEDURE: The patient is a 44-year-old female known to us. She did have symptomatic gallstones and underwent a laparoscopic cholecystectomy on 10/08/2018. She was seen back in the office for worsening reflux with epigastric burning sensation and discomfort as well as regurgitation usually at night. She does take omeprazole; however, more on a p.r.n. basis. DESCRIPTION OF PROCEDURE: The patient was brought to the endoscopy suite and laid in the left lateral decubitus position. After adequate IV pain and sedative medications and conscious sedation anesthesia, the mouthpiece was applied. The endoscope was placed in the mouth, visualizing the pharynx and hypopharyngeal region. Vocal cords, epiglottis and vallecula identified and appeared to be normal. The endoscope was then gently intubated into the esophageal opening and esophagus insufflated. The endoscope was then advanced to the first, second and third portion of the esophagus. At the level of the GE junction, a reflux esophagitis stage II identified. No ulcers or strictures identified in this region. A biopsy was taken with forceps with visualization of good hemostasis. The endoscope was then advanced into the stomach and endoscope retroflexed, visualizing a small to moderate size hiatal hernia approximately 2.5 cm in size. This appeared to be a type 1 sliding hiatal hernia. There was a mild to moderate gastritis. No formal ulcerations, polyps or any neoplasms. A biopsy was taken of the antrum to rule out H. pylori with visualization of good hemostasis. The endoscope was then advanced to the pylorus and the first and second portion of the duodenum, which appeared normal with no distal obstructions. The endoscope was slowly withdrawn while taking a second look and suctioning of residual air with no additional findings. The patient tolerated the procedure well. For her reflux esophagitis as well as gastritis and hiatal hernia, we will recommend the necessary lifestyle and diet accommodation including small and more frequent meals, avoidance of eating at night as well as head elevation while lying supine. We will also proceed with Protonix 40 mg daily. If she continues to have symptoms or worsening symptoms despite maximal medical therapy, she may be a candidate for a hiatal hernia repair as well as an antireflux procedure; however, before proceeding with this, we would proceed with the adequate testing including an esophageal manometry study to rule out any potential esophageal dysmotility disorders. Job ID: [id number] DocumentID: [id number] Dictated Date: 11/17/2019 10:55:02 Food Writer Date: 11/17/2019 13:02:02 Dictated By: JOHNSON RICHARDS MD
== END 2019-11-17 11:15 | disposition home or self-care (01) ==
LOC: ENDO 09:01
PROVIDERS: ATTEND Surgery
DX: K29.50 Unspecified chronic gastritis without bleeding (principal); K21.0 Gastro-esophageal reflux disease with esophagitis; K44.9 Diaphragmatic hernia without obstruction or gangrene; Z79.899 Other long term (current) drug therapy; Z82.49 Family history of ischemic heart disease and other diseases of the circulatory system; Z80.0 Family history of malignant neoplasm of digestive organs
CPT/HCPCS: 84703

== ENCOUNTER → 2019-12-06 | Outpatient (CLI) | payer BC ==
[~2019-12-06] VITALS: Ht 182 cm; Wt 117.0 kg
[~2019-12-06] MED LIST changes: +CATHETER FLUSH 10 ML SYR IV PRN; +CETI10TA49 PO; +OMEP20TA33 PO; +PANT40TA2 PO; +REGADENOSON 0.4 MG/5 ML SYR (LEXISCAN) IV ONE
[2019-12-06 09:01] VITALS: BP 115/66
--- NOTE | 2019-12-06 11:19 | Cardiology Stress Test Report ---
Stress Test Report Date of Procedure/Referring: Date of Procedure: Dec 06, 2019 PCP Freda Steele MD Admitting Physician Philly Dalton DO Indications: Atrial fibrillation Baseline Heart Rate: 63 Baseline Blood Pressure: Blood Pressure Systolic: 115 Blood Pressure Diastolic: 66 Baseline Vitals Vital Signs Date Time Temp Pulse Resp B/P (MAP) Pulse Ox O2 Delivery O2 Flow Rate FiO2 12/06/19 09:01 63 115/66 (82) 98 Baseline EKG: Baseline EKG: normal sinus rhythm Summary After explaining the procedure to the patient, she signed a consent and then brought to the stress nuclear laboratory. Patient received 0.4 mg Lexiscan for stress test, ECG, heart rate and blood pressure were monitored continuously. Resting and stress dose of radio tracer were injected, imaging was acquired and reviewed in short axis, horizontal long axis and vertical long axis views. TID: 0.93 SSS: 7 SDS: 4 EF: 67 1. Patient tolerated Lexiscan well 2. Patient was noted to be in normal sinus rhythm during test and persisted throughout test 3. Breast attenuation with mild decrease uptake involving the mid to apical anterior lateral wall with mild reversibility probably due to the breast attenuation 4. Normal left ventricular size, EF 67 percent FREDA STEELE MD Dec 06, 2019 11:19
== END ==
PROVIDERS: ATTEND Internal Medicine Cardiovascular Disease
DX: I48.91 Unspecified atrial fibrillation (principal); K44.9 Diaphragmatic hernia without obstruction or gangrene; E66.9 Obesity, unspecified
CPT/HCPCS: 78452; 93017; A9502

== ENCOUNTER 2019-12-07 09:00 | Outpatient (RCR) | payer BC ==
[~2019-12-07 09:00] MED LIST changes: -CATHETER FLUSH 10 ML SYR IV PRN; -REGADENOSON 0.4 MG/5 ML SYR (LEXISCAN) IV ONE
[2020-03-01] MEDS ORDERED: DILT120C88 PO (09:56)
== END 2020-03-06 | disposition home or self-care (01) ==
LOC: CARD 09:00
PROVIDERS: ATTEND Internal Medicine Cardiovascular Disease
DX: I34.0 Nonrheumatic mitral (valve) insufficiency (principal); I48.91 Unspecified atrial fibrillation; E66.9 Obesity, unspecified; K44.9 Diaphragmatic hernia without obstruction or gangrene
CPT/HCPCS: 93270; 93306

== ENCOUNTER 2020-03-01 08:54 | Day surgery (SDC) | payer BC ==
[~2020-03-01] VITALS: Ht 183 cm; Wt 114.0 kg
[2020-03-01] VITALS (8 sets, daily range): BP systolic 124–143; BP diastolic 71–81
[2020-03-01] MEDS ORDERED: NS IV 1000 ML 1,000 ML ONE (09:29)
[2020-03-01] MEDS ORDERED: LIDOCAINE 1% INJ 20 ML 20 ML VIAL ONE (09:29)
[2020-03-01] MEDS ORDERED: HEParin (CATH LAB) 2,000 ML IV ONE (09:29)
[2020-03-01] MEDS ORDERED: NS IV 1000 ML 1,000 ML IV SCH ×2 (09:30→12:15)
[2020-03-01 09:54] LABS: HEMOGLOBIN 13.7 g/dL (11.5-16.0); MEAN PLATELET VOLUME 11.2 fL (9.0-12.2); WHITE BLOOD COUNT 9.1 10^3/uL (4.3-11.0)
[2020-03-01] MEDS ORDERED: DILT120C88 PO (09:56)
[2020-03-01 09:57] LABS: BILIRUBIN,URINE NEGATIVE (NEGATIVE); CLARITY,URINE CLEAR; COLOR,URINE YELLOW; GLUCOSE, URINE (UA) NEGATIVE (NEGATIVE); KETONES,URINE NEGATIVE (NEGATIVE); LEUKOCYTE ESTERASE ,URINE NEGATIVE (NEGATIVE); NITRITE,URINE NEGATIVE (NEGATIVE); PH,URINE 5.5 (5-9); PROTEIN,URINE NEGATIVE (NEGATIVE)
[2020-03-01 10:06] LABS: BACTERIA,URINE MODERATE /HPF; SQUAMOUS EPITHELIAL CELL,UR 25-50 /HPF
[2020-03-01 10:09] LABS: PROTHROMBIN TIME PATIENT 13.1 SEC (12.2-14.7)
[2020-03-01 10:14] LABS: ALANINE AMINOTRANSFERASE 23 U/L (0-55); ALBUMIN 4.1 GM/DL (3.2-4.5); ALKALINE PHOSPHATASE 73 U/L (40-136); BILIRUBIN,TOTAL 1.3 MG/DL (0.1-1.0); BUN/CREATININE RATIO 18; CALCIUM 9.1 MG/DL (8.5-10.1); CARBON DIOXIDE 23 MMOL/L (21-32); CHLORIDE 107 MMOL/L (98-107); CHOLESTEROL 212 MG/DL (< 200); CREATININE SERUM 0.96 MG/DL (0.60-1.30); GFR ESTIMATED > 60; GLUCOSE 87 MG/DL (70-105); HDL CHOLESTEROL 38 MG/DL (40-60); POTASSIUM 3.9 MMOL/L (3.6-5.0); SODIUM 139 MMOL/L (135-145); TOTAL PROTEIN 7.8 GM/DL (6.4-8.2); TRIGLYCERIDES 309 MG/DL (<150); VLDL CHOLESTEROL 62 MG/DL (5-40)
--- NOTE | 2020-03-01 10:26 | Diagnostic Imaging Report ---
PATIENT HISTORY: Abnormal stress test, PAF,HTN. Heart catheter. TECHNIQUE: Single frontal view of the chest. COMPARISON: 11/04/2019. FINDINGS: The lung volumes are mildly large. No focal consolidation is seen. No large pleural effusion or pneumothorax is seen. The cardiomediastinal silhouette is normal in size and contour. No acute osseous abnormality is seen. IMPRESSION: No acute pulmonary abnormality seen. Dictated by: Dictated on workstation # [id number]
[2020-03-01] MEDS ORDERED: HEParin 1000 UNIT/ML (10ML VIAL) FOR BOLUS ONE (11:01)
[2020-03-01] MEDS ORDERED: fentaNYL INJECTION 100 MCG/2 ML AMP ONE (11:01)
[2020-03-01] MEDS ORDERED: MIDAZOLAM 5 MG/5 ML (VERSED) VIAL ONE (11:01)
[2020-03-01] MEDS ORDERED: VERAPAMIL 5 MG/2 ML (CALAN) VIAL IV ONE (11:01)
[2020-03-01] MEDS ORDERED: NITRO DRIP 25000 MCG/D5W 250 ML IV ONE (11:02)
--- NOTE | 2020-03-01 12:02 | Cardiac Procedure Note-CS/ASA ---
Pre-Procedure Note Pre-Op Procedure Note H&P Reviewed The H&P was reviewed, patient examined and no changes noted. Date H&P Reviewed: Mar 01, 2020 Time H&P Reviewed: 12:02 Conscious Sedation Pre-Proced Time 12:02 ASA Score 3 For ASA 3 and 4: Consider anesthesia and medical clearance. Also, for patients with a history of failed moderate sedation consider anesthesia. Airway Lungs Heart ASA score ASA 1: a normal healthy patient ASA 2: a patient with a mild systemic disease (mid diabetes, controlled hypertension, obesity x ASA 3: a patient with a severe systemic disease that limits activity (angina, COPD, prior Myocardial infarction) ASA 4: a patient with an incapacitating disease that is a constant threat to life (CHF, renal failure) ASA 5: a moribund patient not expected to survive 24 hrs. (ruptured aneurysm) ASA 6: a declared brain- patient whose organs are being harvested. For emergent operations, add the letter E after the classification Mallampati Classification Grade 3 Sedation Plan Analgesia, Amnesia, Plan communicated to team members, Discussed options with patient/fam, Discussed risks with patient/fam The patient is an appropriate candidate to undergo the planned procedure, sedation, and anesthesia. The patient immediately re-assessed prior to indication. FREDA GUERIN MD Mar 01, 2020 12:02
--- NOTE | 2020-03-01 12:06 | Discharge Inst-Post CATH ---
Discharge Inst-CATH/EP Problems Reviewed?: Yes Post Cardiac Cath/EP D/C Inst Follow Up/Plan Appointment with Dr. Steele's office in 4 weeks <b>CARDIAC CATH/EP PROCEDURE DISCHARGE INSTRUCTIONS</b> ACTIVITY * Go Home directly and rest. * Limit activity of the leg (or wrist if it was used) for 7 days including aerobics, swimming, jogging, bicycling, etc. * Restrict stair-climbing for 7 days if possible, if not, climb up with your non-cath leg, then bring together on the same step. * Avoid lifting, pushing, pulling or excessive movement of the affected extremity for 7 days. * Customary sexual activity may be resumed after 2 days-use caution not to use a position that strains or causes pain to the affected extremity. * No driving for 24 hours. * NO SMOKING. * Avoid straining for bowel movements for 7 days. * Gentle walking on level ground is allowed. * Returning to work will depend on the type of procedure and the results. Your doctor will discuss this with you. CALL YOUR DOCTOR FOR ANY OF THE FOLLOWING: *If bleeding from the puncture site occurs- Apply gentle pressure to site with clean cloth and call your doctor or EMS. * If a knot or lump forms under the skin, increases in size, or causes pain. * If bruising appears to be worsening or moving further down your leg instead of disappearing. * Temperature above 101 F. CARE OF YOUR GROIN INCISION; * Bruising or purple discoloration of the skin near the puncture site is common. * You may shower only, no bathtub bathing for 5 days. Be careful to avoid slipping as your leg may feel stiff. * If a closure device was used on your femoral artery, please see the attached guide regarding care of the device and your leg. * Leave dressing on FOR 24 hours. CARE OF YOUR WRIST INCISION; * Bruising or purple discoloration of the skin near the puncture site is common. * You may shower. * DO NOT submerge wrist. * Leave dressing on FOR 24 hours. FREDA STEELE MD Mar 01, 2020 12:06
--- NOTE | 2020-03-01 12:10 | Cardiac Cath Report ---
Cardiac Cath Report Physician (s)/Chrome Polisher (s) Physician FREDA GUERIN MD Pre-Procedure Diagnosis Pre-Procedure Diagnosis: chest pain, coronary artery disease Post-Procedure Note Procedure Start Date: Mar 01, 2020 Name of Procedure: Left heart catheterization Findings/Procedure Note PROCEDURE NOTE: 44-year-old lady with history of hyperlipidemia, hypertriglyceridemia, had an abnormal stress test, has been having chest pain, scheduled for cardiac c atheterization possible PTCA. After explaining the procedure to the patient, all pros and cons were explained, all questions were answered. The patient signed the consent and then she was placed on the cardiac catheterization laboratory. Groin was prepped SL fashion local anesthesia was used. Sheath placed in the right radial artery, Fontana catheter advanced to the left ventricular cavity, pressure was measured, no left ventricular gram was done, pullback LV to aorta was done, intubated the left coronary system and angiogram was done. I was unable to intubate the right coronary system, exchanged the catheter using a long J-wire and used FR catheter advanced to the right coronary system and angiogram was done. At the end of the procedure the sheath was removed. Vascular band was used FINDINGS: Hemodynamics LV 104/12, end-diastolic pressure of 12 Aorta 94/70 mean of 57 ANATOMY: Left Main is free of obstructive disease Left Anterior Descending has mild irregularity with no obstructive disease Left Circumflex has mild disease nonobstructive disease Right Coronory Artery has superior origin, no significant obstructive disease LV Gram was not done, pressure was measured CONCLUSION: 1. Mild coronary artery disease nonobstructive disease 2. Normal left ventricular end-diastolic pressure DISCUSSION AND RECOMMENDATION: Patient has no significant obstructive disease noted to have hyperlipidemia/hypertriglyceridemia, educated on diet control, will reevaluate lipid profile in 3-6 months Anesthesia Type: Conscious Sedation Estimated blood loss (mL): 10 ml Contrast Amount: 35 ml Total Radiation Dose: 200 mGy Post-Procedure Diagnosis Post-operative diagnosis: Chest pain Coronary artery disease Hyperlipidemia FREDA GUERIN MD Mar 01, 2020 12:10
== END 2020-03-01 14:30 | disposition home or self-care (01) ==
LOC: CATH 08:54 → SDC 12:15 → CATH 14:30
PROVIDERS: ATTEND Internal Medicine Cardiovascular Disease
DX: I25.10 Atherosclerotic heart disease of native coronary artery without angina pectoris (principal); E78.1 Pure hyperglyceridemia; E78.2 Mixed hyperlipidemia; I48.92 Unspecified atrial flutter; I48.0 Paroxysmal atrial fibrillation; R94.39 Abnormal result of other cardiovascular function study; Z79.01 Long term (current) use of anticoagulants; Z79.899 Other long term (current) drug therapy
CPT/HCPCS: 71045; 80053; 80061; 81000; 84703; 85027; 85610; 85730; 87081; 87088; 93458; C1894; 36415; 87077; 87186

== ENCOUNTER → 2020-09-22 | Day surgery (SDC) | payer BC ==
[~2020-09-22] VITALS: Ht 182 cm; Wt 114.0 kg
[~2020-09-22] MED LIST changes: +DILT120C88 PO; +LIDOCAINE 1% INJ 20 ML 20 ML VIAL INJ ONE; +LIDOCAINE 1% INJ 20 ML 20 ML VIAL ONE; -OMEP40CA27 PO; +OMEP40CA6 PO
[2020-09-22 09:01] VITALS: BP 117/59
--- NOTE | 2020-09-22 09:52 | Implantation of Loop Monitor ---
Implant of Loop Monitior IMPLANTATION OF LOOP MONITOR REPORT DATE OF PROCEDURE: 09/22/20 PREOP DIAGNOSIS: Paroxysmal atrial fibrillation POSTOP DIAGNOSIS: Paroxysmal atrial fibrillation PROCEDURE DETAILS: The patient is a 44 female with history of paroxysmal atrial fibrillation requiring long-term surveillance. Therefore implantable loop recorder was discussed and agreed with the patient. Informed consent was taken. All risks and complications were discussed at length. The patient was draped and prepped in the usual sterile fashion. Local anesthesia was lidocaine, which was given in the substernal area close to the 4th intercostal space. Loop monitor [employer] with serial number [id number] was implanted according to the protocol. Steri- Strips were placed at the end of the procedure. There were no complications and the patient tolerated the procedure well. ANESTHESIA: Local anesthesia with lidocaine. COMPLICATIONS: None CONTRAST/FLUOROSCOPY: None CONCLUSION: Successful implantation of loop monitor with no complication FINAL DIAGNOSIS: Paroxysmal atrial fibrillation Palpitation FREDA GUERIN MD Sep 22, 2020 09:52
[2020-09-22 10:04] VITALS: BP 112/64
== END ==
LOC: CATH 09:00
PROVIDERS: ATTEND Internal Medicine Cardiovascular Disease
DX: I48.0 Paroxysmal atrial fibrillation (principal); I25.10 Atherosclerotic heart disease of native coronary artery without angina pectoris; I10 Essential (primary) hypertension; E78.2 Mixed hyperlipidemia; I48.92 Unspecified atrial flutter; Z79.899 Other long term (current) drug therapy; Z79.01 Long term (current) use of anticoagulants
CPT/HCPCS: 33285; C1764

== ENCOUNTER → 2021-07-26 | Outpatient (CLI) | payer BC ==
[~2021-07-26] MED LIST changes: -LIDOCAINE 1% INJ 20 ML 20 ML VIAL INJ ONE; -LIDOCAINE 1% INJ 20 ML 20 ML VIAL ONE
--- NOTE | 2021-07-26 13:15 | Diagnostic Imaging Report ---
INDICATION: Routine screening. COMPARISON: 09/13/2016. TECHNIQUE: 2D and 3D bilateral screening mammography was performed with CAD. FINDINGS: Scattered fibroglandular densities are identified bilaterally. The parenchymal pattern is stable. No spiculated mass or malignant-appearing microcalcifications are seen. A cardiac loop recorder overlies the posterior left breast. The axillae are unremarkable. IMPRESSION: No mammographic features suspicious for malignancy are identified. ACR BI-RADS Category 1: Negative. Result letter will be mailed to the patient. Note: At least 10% of breast cancer is not imaged by mammography. Dictated by: Dictated on workstation # [id number]
== END ==
LOC: RAD 09:56
PROVIDERS: ATTEND Family Medicine
DX: Z12.31 Encounter for screening mammogram for malignant neoplasm of breast (principal)
CPT/HCPCS: 77063; 77067

== ENCOUNTER → 2022-02-27 | Outpatient (CLI) | payer BC ==
--- NOTE | 2022-02-27 16:42 | Diagnostic Imaging Report ---
INDICATION: Cough, right rib pain EXAMINATION: Right rib series 02/27/2022. FINDINGS: 3 views of the right ribs. No displaced rib fractures identified. Visualized lung clear. IMPRESSION: 1. Negative rib series. Dictated by: Dictated on workstation # [id number]
--- NOTE | 2022-02-27 16:43 | Diagnostic Imaging Report ---
INDICATION: Rib pain after coughing. Had the flu over [place]. EXAMINATION: 2 view chest 02/27/2022. COMPARISON: 03/01/2020 FINDINGS: There is a loop recorder device overlying left chest. Heart and pulmonary vasculature normal. Lungs and pleural spaces clear. No pneumothorax. No displaced fractures identified. IMPRESSION: 1. Negative chest. Dictated by: Dictated on workstation # [id number]
== END ==
LOC: RAD 15:44
PROVIDERS: ATTEND Family Medicine
DX: R05.9 Cough, unspecified (principal); R07.81 Pleurodynia
CPT/HCPCS: 71046; 71100

== ENCOUNTER → 2022-03-22 | Outpatient (CLI) | payer BC ==
--- NOTE | 2022-03-22 14:54 | Diagnostic Imaging Report ---
PROCEDURE: CT chest without contrast. TECHNIQUE: Multiple contiguous axial images were obtained through the chest without the use of intravenous contrast. Auto Exposure Controls were utilized during the CT exam to meet ALARA standards for radiation dose reduction. INDICATION: Cough and chest wall pain and right lower rib pain. No prior studies are available for comparison. No definite axillary, hilar or mediastinal lymphadenopathy is detected. No pericardial fluid is identified. There is some trace pleural fluid on the right. The lungs are clear apart from minimal infiltrate or atelectasis in the medial aspect of the right middle lobe. There is no pneumothorax. There are fractures involving the right anterolateral 5th, 6th and 7th ribs. These do show some slight callus formation consistent with partial healing although fracture lines remain visible. No other bony abnormality is seen. Upper abdomen is unremarkable. IMPRESSION: 1. Minimal infiltrate or atelectasis right middle lobe. 2. Nondisplaced partially healed right 5th through 7th rib fractures. Dictated by: Dictated on workstation # [id number]
== END ==
LOC: RAD 12:30
PROVIDERS: ATTEND Family Medicine
DX: S22.41XD Multiple fractures of ribs, right side, subsequent encounter for fracture with routine healing (principal); X58.XXXD Exposure to other specified factors, subsequent encounter
CPT/HCPCS: 71250

== ENCOUNTER → 2022-09-02 | Outpatient (CLI) | payer BC ==
--- NOTE | 2022-09-02 11:12 | Diagnostic Imaging Report ---
Indication: Routine screening. Comparison is made with prior mammogram from 07/26/2021 and 09/05/2016. 2-D and 3-D bilateral screening mammography was performed with CAD. The current study was also evaluated with a Computer Aided Detection (CAD) system. Scattered fibroglandular densities are identified bilaterally. Cardiac loop recorder overlies the posterior medial left breast. No mass or malignant-appearing microcalcifications are identified. Axillae are unremarkable. IMPRESSION: BI-RADS Category 1 No mammographic features suspicious for malignancy are identified. ACR BI-RADS Category 1: Negative. Result letter will be mailed to the patient. Note: At least 10% of breast cancer is not imaged by mammography. Dictated by: Dictated on workstation # [id number]
== END ==
LOC: RAD 08:09
PROVIDERS: ATTEND Nurse Practitioner Family
DX: Z12.31 Encounter for screening mammogram for malignant neoplasm of breast (principal)
CPT/HCPCS: 77063; 77067

== ENCOUNTER 2022-10-23 05:35 | Outpatient (CLI) | payer BC ==
[~2022-10-23] VITALS: Ht 182.9 cm; Wt 125.4 kg
[2022-10-23] MEDS ORDERED: ASPI-1238 PO (08:40)
[2022-10-23] MEDS ORDERED: OMEP20TA56 PO (08:40)
== END 2022-10-23 08:43 | disposition home or self-care (01) ==
LOC: PREOP 05:35
PROVIDERS: ATTEND Surgery
DX: Z01.818 Encounter for other preprocedural examination (principal)

== ENCOUNTER 2022-10-30 10:28 | Day surgery (SDC) | payer BC ==
--- NOTE | 2022-10-22 21:35 | HISTORY AND PHYSICAL ---
PROCEDURE DATE: 10/30/2022. ATTENDING PRIMARY CARE PHYSICIAN: Philly Dalton DO The patient is a 47-year-old female who is known to us. She was initially seen 2018 for symptomatic gallstones and underwent laparoscopic cholecystectomy. She was then seen in 10/2019 for worsening reflux and epigastric burning sensation as well as discomfort as well as regurgitation, usually at night. She did undergo an EGD with biopsy on 11/17/2019 and was found to have reflux esophagitis, stage II, small to moderate size hiatal hernia, 2.5 cm in size, mild to moderate gastritis with no distal obstructions. Biopsies were negative for H. pylori as well as negative for Browning's esophagus. On today's visit, she reports she is in need of a screening colonoscopy. She reports she has never had one done before in the past. She denies any blood in her stool as well as no family history of any colon cancer. She denies any diarrhea or constipation as well as no abdominal pain. She still reports occasional episodes of reflux; however, reports she has had more recently due to increased stress, but does take Prilosec as needed. She denies any hematemesis or any coffee-ground emesis as well as no nausea or vomiting. PAST MEDICAL HISTORY: Atrial fibrillation, atrial flutter, gastroesophageal reflux disease, hiatal hernia. SURGICAL HISTORY: section 07/23/2007, laparoscopic cholecystectomy 10/08/2018, cardiac ablation 11/2021. ALLERGIES: NO KNOWN DRUG ALLERGIES. MEDICATIONS: Omeprazole p.r.n., aspirin 81 mg daily. SOCIAL HISTORY: Negative for tobacco smoke. Negative for alcohol. FAMILY HISTORY: Father, hypertension. Mother, hypertension. Maternal grandmother, colon cancer. VITAL SIGNS: Blood pressure is 120/80. Current weight is 276.5 at 6 feet 0 inches with a body mass index of 37.5. REVIEW OF SYSTEMS: Well-nourished female in no acute distress. She is not experiencing any shortness of breath or difficulty breathing. No chest pain, palpitations or diaphoresis. No nausea, vomiting or abdominal pain. No diarrhea or constipation. No red blood per rectum. No dark tarry stools. No fever or chills. No recent inadvertent weight loss. All other review of systems negative. PHYSICAL EXAM: CHEST: Clear. Good breath sounds bilaterally. HEART: Regular. No murmurs. EXTREMITIES: No lower extremity edema. Negative Homans sign. HEENT: No scleral icterus. No cervical lymphadenopathy. ABDOMEN: Soft, nontender, nondistended. SKIN: Warm, dry and pink. NEUROLOGIC: Awake, alert and oriented x3. ASSESSMENT AND PLAN: A 47-year-old female who is in need of a screening colonoscopy, who also has episodes of reflux as well as a known hiatal hernia. At this time, our recommendation will be to proceed with an EGD with biopsies as appropriate as well as a screening colonoscopy. Risks and benefits of the procedure as well as home care instructions were explained to the patient. She verbalized understanding of instructions and agrees to proceed as planned. At this time, we will schedule her for an EGD with biopsies as appropriate as well as a screening colonoscopy. Job ID: [id number] DocumentID: [id number] Dictated Date: 10/22/2022 18:56:16 [employer] Program Coordinator Date: 10/22/2022 21:34:00 Dictated By: YANDY RAMAN APRN
[~2022-10-30] VITALS: Ht 182.9 cm; Wt 125.4 kg
[~2022-10-30 10:28] MED LIST changes: +ASPI-1238 PO; +OMEP20TA56 PO
[2022-10-30] MEDS ORDERED: LACTATED RINGERS 1,000 ML 1,000 ML IV STA (10:34)
[2022-10-30] MEDS ORDERED: HURRICAINE EXT TUBE (BENZOCAINE) XX PRN (10:45)
[2022-10-30] MEDS ORDERED: LIDOCAINE JELLY 2% 6 ML SYRINGE MM PRN (10:45)
--- NOTE | 2022-10-30 10:54 | Progress Note-Pre Operative ---
Pre-Operative Progress Note Date of Available H&P: Oct 30, 2022 Date H&P Reviewed: Oct 30, 2022 Time H&P Reviewed: 10:30 History & Physical: No changes noted Pre-Operative Diagnosis: screening o JOHNSON RICHARDS MD Oct 30, 2022 10:54
--- NOTE | 2022-10-30 10:55 | Discharge Inst-Surgical ---
D/C Lap Instructions-MAURICE Follow Up Activity as tolerated High Fiber Diet 25g or more per day Avoid Alcohol, Caffeine, Spicy Powder Horn and Acid foods. Drink 64 fluid oz or more of fluids per day. Symptoms to Report: Fever over 101 degree F, Nausea/Vomiting If any problems/questions: Contact your physician or go to Emergency Room JOHNSON RICHARDS MD Oct 30, 2022 10:55
[2022-10-30 10:58] VITALS: BP 122/69
[2022-10-30] MEDS ORDERED: ONDANSETRON INJECTION 4 MG/2 ML (SDV) IVP PRN (11:00)
[2022-10-30] MEDS ORDERED: ONDANSETRON 4 MG ORAL DISSOLVE TABLET PO PRN (11:00)
[2022-10-30] MEDS ORDERED: LIDOCAINE JELLY 2% 6 ML SYRINGE ONE (11:46)
[2022-10-30] MEDS ORDERED: MIDAZOLAM INJ 2 MG/2 ML VIAL ONE (11:54)
[2022-10-30] MEDS ORDERED: ONDANSETRON INJECTION 4 MG/2 ML (SDV) ONE (12:00)
[2022-10-30] MEDS ORDERED: proPOfol INJECTION 200 MG/20 ML VIAL IV ONE ×3 (12:22→12:40)
[2022-10-30 12:50] VITALS: BP 129/64
[2022-10-30 12:55] VITALS: BP 119/57
--- NOTE | 2022-10-30 13:03 | Progress Note-Post Operative ---
Post-Operative Progess Note Surgeon (s)/Accelerator Systems Director (s) Surgeon JOHNSON RICHARDS MD Accelerator Systems Director: none Pre-Operative Diagnosis screening colo, GERD Post-Operative Diagnosis reflux esophagitis(grade B), small-mod HH(3cm), moderate gastritis. Normal colon and rectum Procedure & Operative Findings Date of Procedure 10/30/22 Procedure Performed/Findings EGD with bx. Colonoscopy. Anesthesia Type mac Estimated Blood Loss Estimated blood loss (mL): minimal Specimens/Packing Specimens Removed ge jxn, antrum JOHNSON RICHARDS MD Oct 30, 2022 13:03
[2022-10-30] MEDS ORDERED: fentaNYL INJECTION 100 MCG/2 ML VIAL IVP ONE (13:15)
[2022-10-30] MEDS ORDERED: fentaNYL INJECTION 100 MCG/2 ML VIAL ONE (13:17)
[2022-10-30] MEDS ORDERED: OMEP40CA6 PO (13:38)
[2022-10-30 14:40] VITALS: BP 119/57
--- NOTE | 2022-10-30 14:51 | Anesthesia-General Post-Op ---
MAC Patient Condition Mental Status/LOC: Same as Preop Cardiovascular: Satisfactory Nausea/Vomiting: Absent Respiratory: Satisfactory Pain: Controlled Complications: Absent Post Op Complications Complications None Follow Up Care/Instructions Patient Instructions None needed. Anesthesiology Discharge Order Discharge Order Patient is doing well, no complaints, stable vital signs, no apparent adverse anesthesia problems. No complications reported per nursing. ADRIANO HOLDER CRNA Oct 30, 2022 14:51
--- NOTE | 2022-10-30 20:24 | OPERATIVE REPORT ---
DATE OF SERVICE: 10/30/2022 ATTENDING PRIMARY CARE PHYSICIAN: Philly Dalton DO PREOPERATIVE DIAGNOSES: Gastroesophageal reflux disease, screening colonoscopy. POSTOPERATIVE DIAGNOSES: Reflux esophagitis Williams grade B, small to moderate size hiatal hernia 2.5-3 cm in size, moderate gastritis, normal colon and rectum. PROCEDURE: EGD with biopsy, colonoscopy. SURGEON: Johnson Richards M.D. ANESTHESIA: Monitored anesthesia care. ESTIMATED BLOOD LOSS: Minimal. FINDINGS: Reflux esophagitis Williams grade B, small to moderate size hiatal hernia 2.5-3 cm in size, moderate gastritis, normal colon and rectum. DISPOSITION: The patient tolerated the procedure well. INDICATIONS: The patient is a 47-year-old female known to us. We had initially seen her for symptomatic gallstones and underwent a laparoscopic cholecystectomy in 2018. We then did an EGD in 10/2019 where she was found to have reflux esophagitis as well as a [id number] size hiatal hernia. She now reports that she has had worsening reflux in the past year. She also is in need of a screening colonoscopy. She does not report any major issues with diarrhea, no constipation, as well as no red blood per rectum, nor any dark tarry stools. She also does not report any family history of colon cancer. DESCRIPTION OF PROCEDURE: The patient was brought to the endoscopy suite and laid in the left lateral decubitus position. After adequate IV pain and sedative medications and monitored anesthesia care, the mouthpiece was applied. The endoscope was then placed into the mouth, visualizing the pharynx and hypopharyngeal region. Vocal cords, epiglottis and vallecula identified and appeared to be normal. The endoscope was then gently intubated into the esophageal opening and esophagus insufflated. The endoscope was then advanced through the first, second and third portions of esophagus at the level of the GE junction. A reflux esophagitis Williams grade B identified. No ulcers or strictures identified. The endoscope was then advanced into the stomach and endoscope retroflexed visualizing again a [id number] sized hernia, more in lines of 3 cm in size. There was moderate gastritis. No formal ulcerations, polyps or any neoplasms. A biopsy was taken of the stomach antrum to rule out H. pylori with visualization of good hemostasis. The endoscope was then advanced through the pylorus, the first and second portion of the duodenum, which appeared normal. The endoscope was then slowly withdrawn while taking a second look and suctioning of residual air with no additional findings. A digital rectal examination was performed. No significant hemorrhoids identified. Normal sphincter tone was felt and there were no palpable masses. The endoscope was then intubated into the anus, rectum gently insufflated. The endoscope was then advanced through the valves of [place] of the rectum with no polyps or any neoplasms identified. Through the sigmoid colon, no diverticulosis identified. The endoscope was then advanced through the remainder of the descending, transverse and ascending colons of the cecum, which were normal. The endoscope was then slowly withdrawn while taking a second look and suctioning of residual air with no additional findings. The patient tolerated the procedure well. We will recommend the necessary lifestyle and dietary accommodation, which would encompass small and more frequent meals, avoidance of eating at night as well as head elevation while lying supine. Any modality at regularly scheduled diet regimen as well as exercise and weight loss and maintenance would also be beneficial. We will also start her on omeprazole 40 mg to be taken on a daily basis scheduled. If she has recurrent or worsening issues with reflux despite maximal medical therapy, we will then recommend proceeding with repairing the hiatal hernia; however, due to her body mass index, we would recommend adding a surgical weight loss procedure in conjunction with this. We will also recommend continued medical management for colonic health and recommend a high-fiber diet with at least 25 grams of fiber daily as well as significant amounts of water to promote soft consistency stools on a daily basis. From a colonoscopy standpoint, she does not need another one for another 10 years. Job ID: [id number] DocumentID: [id number] Dictated Date: 10/30/2022 12:56:43 Field Associate Date: 10/30/2022 20:22:00 Dictated By: JOHNSON RICHARDS MD
== END 2022-10-30 14:40 | disposition home or self-care (01) ==
LOC: ENDO 10:28
PROVIDERS: ATTEND Surgery
DX: Z12.11 Encounter for screening for malignant neoplasm of colon (principal); K21.00 Gastro-esophageal reflux disease with esophagitis, without bleeding; K44.9 Diaphragmatic hernia without obstruction or gangrene; K29.70 Gastritis, unspecified, without bleeding; K31.89 Other diseases of stomach and duodenum; E66.01 Morbid (severe) obesity due to excess calories; Z68.37 Body mass index [BMI] 37.0-37.9, adult; Z90.49 Acquired absence of other specified parts of digestive tract
CPT/HCPCS: 84703

== ENCOUNTER → 2022-12-03 | Outpatient (CLI) | payer BC ==
--- NOTE | 2022-12-03 08:35 | Diagnostic Imaging Report ---
PROCEDURE: CT abdomen without contrast. TECHNIQUE: Multiple contiguous axial images were obtained through the abdomen without the use of intravenous contrast. Auto Exposure Controls were utilized during the CT exam to meet ALARA standards for radiation dose reduction. INDICATION: Upper abdominal pain. No prior studies are available for comparison. The lung bases are clear of acute infiltrates. The liver is enlarged measuring up to approximately 23 cm. No liver mass is identified. The gallbladder is surgically absent. There is no biliary ductal dilatation. Pancreas and spleen are unremarkable. No adrenal mass is identified. No renal calculi or hydronephrosis is identified. There appear to be some parapelvic cysts on the left. Aorta is nonaneurysmal. The small and large bowel loops are normal in caliber. There is no obstruction. There is no ascites. IMPRESSION: 1. Hepatomegaly. 2. Otherwise unremarkable noncontrast CT of the abdomen. Dictated by: Dictated on workstation # [id number]
== END ==
LOC: RAD 07:40
PROVIDERS: ATTEND Family Medicine
DX: R16.0 Hepatomegaly, not elsewhere classified (principal)
CPT/HCPCS: 74150

== ENCOUNTER → 2022-12-09 | Outpatient (CLI) | payer BC ==
--- NOTE | 2022-12-09 14:56 | Diagnostic Imaging Report ---
PROCEDURE: US Hepatic (Liver). TECHNIQUE: Multiple real-time grayscale images were obtained over the right upper quadrant in various projections. INDICATION: Hepatomegaly. Liver measures 21 cm in length. Liver parenchyma is homogeneous. The gallbladder surgically absent. Portal vein is patent without hepatopetal flow. Common duct is not dilated. Pancreas appears normal. Aorta and IVC are normal. Right kidney measures 12.3 cm in length and appears normal. There is no ascites. IMPRESSION: Postoperative changes from cholecystectomy. Liver is enlarged but otherwise unremarkable. Dictated by: Dictated on workstation # [id number]
== END ==
LOC: RAD 09:08
PROVIDERS: ATTEND Family Medicine
DX: R16.0 Hepatomegaly, not elsewhere classified (principal); Z90.49 Acquired absence of other specified parts of digestive tract
CPT/HCPCS: 76705